=== PATIENT | male | born 1995 | race Caucasian/White ===

== ENCOUNTER 2021-01-08 13:44 | Emergency (ER) | payer BC, SELFPAY ==
[2021-01-08 13:51] VITALS: BP 149/67; PULSE 86; RESP 12; TEMP 36.1; O2SAT 100; BMI 27.8
[2021-01-08 14:12] VITALS: BP 135/74; PULSE 89; RESP 16; TEMP 36.9; O2SAT 99
[2021-01-08 14:41] LABS: Prothrombin Time 11.3 SECONDS (10.1-12.7)
[2021-01-08 14:44] LABS: PTT Partial Thromboplastin Tim 35 SECONDS (26.4-36.2)
[2021-01-08 14:45] LABS: Alanine Aminotransferase 46 IU/L (<50); Albumin 5.1 g/dL (3.5-5.0); Albumin Globulin Ratio 1.6 (1.0-2.8); Alkaline Phosphatase 94 U/L (38-126); Aspartate Aminotransferase 39 IU/L (17-59); BUN Creatinine Ratio 19.8 (6-22); Bilirubin Total 0.5 mg/dL (0.2-1.3); Blood Urea Nitrogen 16 mg/dL (9-20); Calcium 10.1 mg/dL (8.4-10.2); Carbon Dioxide 26 mmol/L (22-32); Chloride 104 mmol/L (98-107); Estimated Glomerular Filt Rate > 60.0 mL/min (>60); Globulin 3.2 g/dL (1.7-4.1); Glucose 95 mg/dL (70-100); HEMOLYSIS < 15 (0-50); Lipase 74 U/L (23-300); Sodium 141 mmol/L (137-145); Total Protein 8.3 g/dL (6.3-8.2)
[2021-01-08 15:18] LABS: Add Manual Diff / Slide Review NO; Basophils Absolute Auto 100 /uL (0-100); Eosinophils Absolute Auto 100 /uL (0-450); Eosinophils Percent Auto 1.3 % (2-4); Hemoglobin 16.1 g/dL (13.5-17.5); Lymphocytes Absolute Auto 2100 /uL (1100-4500); Lymphocytes Percent Auto 27.2 % (25-40); Mean Corpuscular HGB Conc 34.2 % (30-36); Mean Corpuscular Hemoglobin 29.1 PG (26-34); Mean Corpuscular Volume 85.1 fL (80-100); Monocytes Absolute Auto 800 /uL (0-900); Monocytes Percent Auto 9.7 % (3-14); Neutrophils Absolute Auto 4800 /uL (1500-7000); Neutrophils Percent Auto 60.8 % (50-75); Platelet Count 296 X10^3/uL (150-400); Red Blood Cell Count 5.53 X10^6/uL (4.5-5.9); White Blood Cell Count 7.8 X10^3/uL (4.5-11.0)
--- NOTE | 2021-01-08 15:20 | ED.GENADULT ---
HPI - General Adult General Chief complaint: Abdominal Pain Stated complaint: HURT CHEST/RIBS, FELL 12/30 Time Seen by Provider: 01/08/21 14:54 Source: patient Mode of arrival: Ambulatory Limitations: no limitations History of Present Illness HPI narrative: Patient is a 25-year-old male here for evaluation of injuries that he sustained when he fell approximately 10 days ago. He states that he landed on a piece of wood that was on the ground. He stated that his entire weight landed on his left lower ribs. He reports no other injuries from the event. Since that time he has had increase in discomfort. No shortness of breath. No changes in bowel habits. No urinary symptoms. Related Data Previous Rx's Medication Instructions Recorded naproxen [Naprosyn] 500 mg PO BIDCC #30 tab 12/11/17 Allergies Allergy/AdvReac Type Severity Reaction Status Date / Time No Known Drug Allergies Allergy Verified 01/08/21 13:54 Review of Systems Constitutional Constitutional: Denies fatigue, Denies fever(s) and Denies headache(s) ENT Ears, Nose, Mouth, and Throat: Denies headache(s) Cardiovascular Cardiovascular: Denies dyspnea Comments: Left-sided chest wall pain Respiratory Respiratory: Denies cough and Denies dyspnea Gastrointestinal Gastrointestinal: Reports abdominal pain (Left upper abdomen pain), Denies change in bowel habits, Denies nausea and Denies vomiting Genitourinary Genitourinary: Denies hematuria and Denies dysuria Genitourinary: Denies hematuria and Denies dysuria Musculoskeletal Musculoskeletal: Denies arthralgias and Denies myalgias Integumentary/Breasts Comments: Bruising over the abdomen Neurologic Neurologic: Denies behavioral changes and Denies headache(s) Psychiatric Psychiatric: Denies behavioral changes Endocrine Endocrine: Denies fatigue Hematologic/Lymphatic On Anticoagulants: No Allergic/Immunologic Allergic/Immunologic: Denies urticaria Patient History Medical History Patient denies medical problems Social History Smoking Status: Never smoker Smoking Status: Never smoker Substance Use Type: does not use Exam Initial Vital Signs Initial Vital Signs: Vital Signs Temperature 97.0 F L 01/08/21 13:51 Pulse Rate 86 01/08/21 13:51 Respiratory Rate 12 01/08/21 13:51 Blood Pressure 149/67 H 01/08/21 13:51 Pulse Oximetry 100 01/08/21 13:51 Const General: cooperative and comfortable Limitations: mental status not altered HENMT Head: normal to inspection and normocephalic Eyes General: appearance normal, both eyes and all related structures Chest Chest: No crepitus Other: General Left lower rib pain without any pinpoint pain Resp Effort & Inspection: normal respiratory effort Auscultation: clear to auscultation bilaterally Cardio Rate: regular rate Rhythm: regular rhythm GI Inspection: non-distended Palpation: soft and No firm Back/Spine/Pelvis Back: No CVA tenderness Skin Other: Superficial bruising left upper quadrant Neuro General: patient alert, patient awake and patient oriented x3 Cognition: normal cognition Speech: speech normal Extrem General: normal to inspection and capillary refill normal Psych Appearance: grossly normal and well kempt Procedures FAST Exam FAST Exam 1: Fluid in Morison's pouch: No Fluid in Splenorenal Junction: No Fluid around bladder, Transverse view: No Fluid around bladder, Sagittal view: No Fluid in Pericardial Sac: No Gross Wall Motion Abnormality: No Study normal for this patient: Yes Images saved for further review: No Course Orders Ordered: ED Orders 01/08/21 14:10 Complete Blood Count AUTO DIFF Stat Comprehensive Metabolic Panel Stat Lipase Stat Partial Thromboplastin Time Stat Prothrombin Time INR Stat 01/08/21 15:20 EKG-12 Lead Stat Vital Signs Vital signs: Vital Signs - 8 hr 01/08/21 13:51 01/08/21 14:12 01/08/21 15:46 Temperature 97.0 F L 98.4 F Pulse Rate 86 89 74 Respiratory Rate 12 16 18 Blood Pressure 149/67 H 135/74 122/65 Pulse Oximetry 100 99 99 Medical Decision Making Lab Data Lab results reviewed: Yes I reviewed the patient's lab results. Result diagrams: 01/08/21 14:10 01/08/21 14:10 Labs: Lab Results 01/08/21 01/08/21 01/08/21 Range/Units 14:10 14:10 14:10 WBC 7.8 (4.5-11.0) X10^3/uL RBC 5.53 (4.5-5.9) X10^6/uL Hgb 16.1 (13.5-17.5) g/dL Hct 47.0 (41-53) % MCV 85.1 (80-100) fL MCH 29.1 (26-34) PG MCHC 34.2 (30-36) % RDW 14.0 (11.6-14.8) % Plt Count 296 (150-400) X10^3/uL Neut % (Auto) 60.8 (50-75) % Lymph % (Auto) 27.2 (25-40) % Foard % (Auto) 9.7 (3-14) % Eos % (Auto) 1.3 L (2-4) % Baso % (Auto) 1.0 (0-2) % Neut # (Auto) 4800 (3419-8177) /uL Lymph # (Auto) 2100 (1612-8661) /uL Foard # (Auto) 800 (0-900) /uL Eos # (Auto) 100 (0-450) /uL Baso # (Auto) 100 (0-100) /uL PT 11.3 (10.1-12.7) SECONDS INR 1.0 (0.9-1.3) APTT 35 (26.4-36.2) SECONDS Sodium 141 (137-145) mmol/L Potassium 4.0 (3.4-5.1) mmol/L Chloride 104 (98-107) mmol/L Carbon Dioxide 26 (22-32) mmol/L BUN 16 (9-20) mg/dL Creatinine 0.81 (0.66-1.25) mg/dL Estimated GFR > 60.0 (>60) mL/min BUN/Creatinine Ratio 19.8 (6-22) Glucose 95 (70-100) mg/dL Calcium 10.1 (8.4-10.2) mg/dL Total Bilirubin 0.5 (0.2-1.3) mg/dL AST 39 (17-59) IU/L ALT 46 (<50) IU/L Alkaline Phosphatase 94 (38-126) U/L Total Protein 8.3 H (6.3-8.2) g/dL Albumin 5.1 H (3.5-5.0) g/dL Globulin 3.2 (1.7-4.1) g/dL Albumin/Globulin Ratio 1.6 (1.0-2.8) Lipase 74 (23-300) U/L ECG Data Attestation: I personally reviewed and interpreted this ECG as follows: Prior ECG tracings: not available for review Interpretation: Sinus rhythm Ventricular rate of 64 Normal axis Normal QRS Normal QTC No ST T wave changes Discharge Plan Departure Patient Disposition: Home Clinical Impression: Anterior chest wall pain Instructions: DI for Rib Contusion Activity Restrictions/Additional Instructions: Your workup here in the emergency department is very reassuring I recommend that you take Tylenol and/or ibuprofen for any discomfort. Contact your primary provider for follow-up. Return to the emergency department for any new or worsening symptoms Prescriptions: No Action naproxen [Naprosyn] 500 MG tablet 500 mg PO BIDCC Qty: 30 RF: 0
[2021-01-08 15:46] VITALS: BP 122/65; PULSE 74; RESP 18; O2SAT 99
== END 2021-01-08 15:48 | disposition home or self-care (01) ==
PROVIDERS: Emergency Medicine; Emergency Provider Emergency Medicine
DX: R07.89 Other chest pain (principal); W19.XXXA Unspecified fall, initial encounter
CPT/HCPCS: 80053; 83690; 85025; 85610; 85730; 93005; 93010; 99283; 99284